=== PATIENT | female | born 1970 | race Caucasian/White ===

== ENCOUNTER 2019-03-06 11:33 | Emergency (ER) | payer MEDICAID, OTHER ==
[~2019-03-06] VITALS: Ht 162.6 cm; Wt 81.4 kg
[~2019-03-06 11:33] MED LIST: NO HOME MEDS; ONDA4TAB12 PO; ONDA4TAB59 PO; SUCR1ORA2 PO
[2019-03-06 11:38] VITALS: BP 117/85
[2019-03-06] MEDS ORDERED: NAPR-56 PO (12:24)
[2019-03-06] MEDS ORDERED: METH-360 PO (12:24)
[2019-03-06] MEDS ORDERED: orphenadrine citrate 60mg/2ml inj. IM ONE (12:25)
[2019-03-06] MEDS ORDERED: ketorolac tromethamine 15mg/ml inj. IM ONE (12:25)
== END 2019-03-06 12:52 | disposition home or self-care (01) ==
LOC: ER 11:34
DX: G89.29 Other chronic pain (principal); M54.5 Low back pain; Z88.2 Allergy status to sulfonamides; Z88.5 Allergy status to narcotic agent; Z88.1 Allergy status to other antibiotic agents; Z79.899 Other long term (current) drug therapy; Z90.49 Acquired absence of other specified parts of digestive tract; Z90.710 Acquired absence of both cervix and uterus; Z98.890 Other specified postprocedural states
CPT/HCPCS: 96372; 99283; J1885; J2360

== ENCOUNTER 2021-03-25 10:40 | Emergency (ER) | payer BC, OTHER ==
[~2021-03-25] VITALS: Ht 162.6 cm; Wt 84.1 kg
[~2021-03-25 10:40] MED LIST changes: +METH-360 PO
[2021-03-25 11:29] VITALS: BP 133/65
== END 2021-03-25 13:40 | disposition home or self-care (01) ==
LOC: ER 10:41
DX: S50.12XA Contusion of left forearm, initial encounter (principal); M79.602 Pain in left arm; G89.29 Other chronic pain; Z90.49 Acquired absence of other specified parts of digestive tract; Z90.710 Acquired absence of both cervix and uterus; Z98.890 Other specified postprocedural states; Z88.2 Allergy status to sulfonamides; Z88.5 Allergy status to narcotic agent; Z88.1 Allergy status to other antibiotic agents; Z79.899 Other long term (current) drug therapy; W19.XXXA Unspecified fall, initial encounter; Y93.89 Activity, other specified; Y92.89 Other specified places as the place of occurrence of the external cause; Y99.8 Other external cause status
CPT/HCPCS: 29125; 73090; 99283